=== PATIENT | female | born 1930 | race Caucasian/White ===

== ENCOUNTER 2016-11-20 00:24 | Inpatient (IN) | payer MEDICARE ==
[2016-11-20] MEDS ORDERED: IPRATROPIUM/ALBUTEROL 0.5-2.5 MG/3 ML AMPUL NEB ONE (01:26)
--- NOTE | 2016-11-20 01:26 | ER Document Report ---
ED Respiratory Problem - General Chief Complaint: Shortness Of Breath Stated Complaint: DIFFICULTY BREATHING Time seen by provider: 01:26 Mode of Arrival: Stretcher Information source: Patient, Relative - HPI Patient complains to provider of: COPD, Cough, Short of breath Onset: This morning Duration: Worse/persistent Quality of pain: No pain Context: Hx COPD Short of Breath: Moderate Chest pain/discomfort: Tightness Cough: Nonproductive Associated symptoms: Congestion, Cough, Difficulty breathing, Short of breath, Wheezing Similar symptoms previously: Yes Recently seen / treated by doctor: Yes Notes: Patient is an 86-year-old female with a history of COPD who recently moved to the area from [facility] with her son, earlier today patient developed a nonproductive but wet sounding cough, and difficulty breathing, she denies a fever, no chest pain, no nausea, vomiting or diarrhea, although son points out that she did have one episode of vomiting yesterday, son also reports that patient had a decreased appetite and decreased energy level throughout the day today, patient was recently seen by her primary care provider just prior to moving from [place] and was diagnosed with a urinary tract infection, she is currently on day 3 of Ceftin Past Medical History - General Information source: Patient, Relative - Social History Smoking Status: Former Smoker Family History: Reviewed & Not Pertinent Review of Systems - Review of Systems Constitutional: No symptoms reported EENT: No symptoms reported Cardiovascular: No symptoms reported Respiratory: Cough, Short of breath, Wheezing Gastrointestinal: Nausea Genitourinary: No symptoms reported Female Genitourinary: No symptoms reported Musculoskeletal: No symptoms reported Skin: No symptoms reported Hematologic/Lymphatic: No symptoms reported Neurological/Psychological: No symptoms reported -: Yes All other systems reviewed and negative Physical Exam - Vital signs Interpretation: Hypoxic - General General appearance: Alert In distress: None - HEENT Head: Normocephalic, Atraumatic Eyes: Normal Conjunctiva: Normal Extraocular movements intact: Yes Eyelashes: Normal Pupils: PERRL Mucous membranes: Normal Pharynx: Normal Neck: Normal - Respiratory Respiratory status: No respiratory distress Chest status: Nontender Breath sounds: Nonproductive cough, Wheezing Chest palpation: Normal - Cardiovascular Rhythm: Regular Heart sounds: Normal auscultation Murmur: No - Abdominal Inspection: Normal Distension: No distension Bowel sounds: Normal Tenderness: Nontender Organomegaly: No organomegaly - Back Back: Normal, Nontender - Extremities General upper extremity: Normal inspection, Nontender, Normal color, Normal ROM , Normal temperature General lower extremity: Normal inspection, Nontender, Normal color, Normal ROM , Normal temperature, Normal weight bearing. No: Yanely's sign - Neurological Neuro grossly intact: Yes Cognition: Normal Orientation: AAOx4 Alli Coma Scale Eye Opening: Spontaneous [place] Coma Scale Verbal: Oriented [place] Coma Scale Motor: Obeys Commands [place] Coma Scale Total: 15 Speech: Normal Motor strength normal: LUE, RUE, LLE, RLE Sensory: Normal - Psychological Associated symptoms: Normal affect, Normal mood - Skin Skin Temperature: Warm Skin Moisture: Dry Skin Color: Normal Course - Re-evaluation Re-evalutation: 11/20/16 03:03 I had a lengthy discussion with patient's son, Mehran at bedside, regarding patient's lab and imaging findings, including an elevated troponin, I discussed different treatment plan modalities with Mehran, Mehran indicated that patient would not be a candidate for cardiac catheterization and he would much rather prefer conservative medical management at this point in time, therefore patient was discussed with Dr. El the hospitalist who agrees to admit here for further evaluation and treatment - Laboratory Result Diagrams: 11/20/16 01:36 11/20/16 01:36 Laboratory results interpreted by me: 11/20/16 11/20/16 11/20/16 01:36 01:36 01:36 RBC 3.53 L Hgb 10.8 L Hct 32.7 L RDW 15.8 H Seg Neutrophils % 86.8 H Lymphocytes % 9.9 L Monocytes % 2.5 L Sodium 134.4 L Potassium 3.5 L Est GFR ( Amer) 57 L Est GFR (Non-Af Amer) 47 L Glucose 179 H NT-Pro-B Natriuret Pep 4130 H - Diagnostic Test Radiology reviewed: Image reviewed, Reports reviewed - EKG Interpretation by Me EKG shows normal: Sinus rhythm Rate: Normal Rhythm: NSR Voltage: Consistant with LVH - Transfer of Care Care transferred to following provider: Dr. El Discharge - Discharge Clinical Impression: COPD exacerbation Condition: Fair Disposition: ADMITTED INPATIENT Admitting Provider: Hospitalist Unit Admitted: Telemetry
[2016-11-20 01:52] LABS: ABSOLUTE LYMPHOCYTES (AUTO) 0.5 10^3/uL (0.5-4.7); ABSOLUTE MONOCYTES (AUTO) 0.1 10^3/uL (0.1-1.4); ABSOLUTE NEUT (AUTO) 4.5 10^3/uL (1.7-8.2); BASOPHILS % (AUTO) 0.5 % (0-2); EOSINOPHILS % (AUTO) 0.3 % (0-6); HEMATOCRIT 32.7 % (36.0-47.0); HEMOGLOBIN 10.8 g/dL (12.0-15.5); HGB HCT DIFFERENCE -0.3; LYMPHOCYTES % (AUTO) 9.9 % (13-45); MEAN CORPUSCULAR HEMOGLOBIN 30.7 pg (27.0-33.4); MEAN CORPUSCULAR HGB CONC 33.1 g/dL (32.0-36.0); MEAN CORPUSCULAR VOLUME 93 fl (80-97); MONOCYTES % (AUTO) 2.5 % (3-13); RED BLOOD COUNT 3.53 10^6/uL (3.72-5.28); RED CELL DISTRIBUTION WIDTH 15.8 % (11.5-14.0); SEGMENTED NEUTROPHILS % (AUTO) 86.8 % (42-78); WHITE BLOOD COUNT 5.2 10^3/uL (4.0-10.5)
[2016-11-20 02:03] LABS: ALANINE AMINOTRANSFERASE 20 U/L (9-52); ALBUMIN 3.5 g/dL (3.5-5.0); ALKALINE PHOSPHATASE 63 U/L (38-126); ANION GAP 13 (5-19); ASPARTATE AMINO TRANSFERASE 29 U/L (14-36); BILIRUBIN,TOTAL 0.9 mg/dL (0.2-1.3); BLOOD UREA NITROGEN 16 mg/dL (7-20); CALCIUM 8.7 mg/dL (8.4-10.2); CARBON DIOXIDE 23 mmol/L (22-30); CHLORIDE 98 mmol/L (98-107); CREATINE KINASE 80 U/L (30-135); CREATININE RESULT 1.09 mg/dL (0.52-1.25); GLUCOSE 179 mg/dL (75-110); POTASSIUM 3.5 mmol/L (3.6-5.0); SODIUM 134.4 mmol/L (137-145); TOTAL PROTEIN 6.8 g/dL (6.3-8.2)
[2016-11-20 02:15] LABS: CREATINE KINASE MB 1.77 ng/mL (<4.55)
[2016-11-20 02:21] LABS: TROPONIN I 0.264 ng/mL
[2016-11-20] MEDS ORDERED: ALBUTEROL SULFATE 0.083% NEB 2.5 MG/3 ML AMPUL NEB ONE (02:54)
[2016-11-20] MEDS ORDERED: ACETAMINOPHEN 325 MG TABLET PO PRN (03:01)
[2016-11-20] MEDS ORDERED: HYDRALAZINE HCL INJ/PF 20 MG/1 ML SDV IV PRN (03:01)
[2016-11-20] MEDS ORDERED: ASPIRIN 325 MG TABLET PO ONE (03:02)
[2016-11-20] MEDS ORDERED: ENALAPRILAT DIHYDRATE INJ/PF 1.25 MG/1 ML SDV IV ONE (03:03)
[2016-11-20 03:11] LABS: APPEARANCE,URINE SLIGHTLY-CLOUDY; BILIRUBIN,URINE NEGATIVE (NEGATIVE); GLUCOSE, URINE NEGATIVE (NEGATIVE); KETONES,URINE 20 mg/dL (NEGATIVE); LEUKOCYTE ESTERASE,URINE NEGATIVE (NEGATIVE); NITRITE,URINE NEGATIVE (NEGATIVE); PROTEIN,URINE 100 mg/dL (NEGATIVE); URINE SPECIFIC GRAVITY 1.013; UROBILINOGEN,URINE NEGATIVE mg/dL (<2.0)
[2016-11-20] MEDS ORDERED: POTASSI CL 20 MEQ/50 ML RIDER 20 MEQ/50 ML RTUPB IV SCH (03:15)
[2016-11-20] MEDS ORDERED: NITROGLYCERIN 0.4 MG/TAB 25 TAB/BOTTLE SL PRN (04:13)
[2016-11-20] MEDS ORDERED: ATORVASTATIN CALCIUM 80 MG TABLET PO SCH (04:15)
--- NOTE | 2016-11-20 06:28 | PDOC H&P ---
History of Present Illness Admission Date/PCP: 11/20/16 04:14 Patient complains of: Shortness of breath History of Present Illness: WILVER MATHIS is a 86 year old female with a past medical history of difficulty with hearing mild dementia and COPD recently moved to [place] from [facility] with her son. She been her usual state of health until approximately 2 days ago having excessive shortness of breath and a nonproductive cough but without fever. Any medication changes are unclear. In the emergency room she's found to be to tachypneic, with audible rhonchi at bedside and positive troponin. She denies chest pain abdominal pain back pain nausea vomiting or diaphoresis. Referred to the hospitalist for admission. Past Medical History Cardiac Medical History: Reports: Hypertension Pulmonary Medical History: Reports: Chronic Obstructive Pulmonary Disease (COPD) Musculoskeltal Medical History: Reports: Arthritis Hematology: Reports: Anemia Social History Information Source: Patient Smoking Status: Former Smoker Frequency of Alcohol Use: None Hx Recreational Drug Use: No Drugs: None Hx Prescription Drug Abuse: No - Advance Directive Resuscitation Status: Full Code Family History Family History: Hypertension Parental Family History Reviewed: Yes Children Family History Reviewed: Yes Sibling(s) Family History Reviewed.: Yes Medication/Allergy Home Medications: Cefuroxime Axetil [Ceftin 250 mg Tablet] 250 mg PO BID 11/20/16 Cholecalciferol (Vitamin D3) [Vitamin D3 1000 unit Chewable Tablet] 1,000 intlu PO 11/20/16 Citalopram Hydrobromide [Citalopram HBr] 10 mg PO DAILY 11/20/16 Cyanocobalamin (Vitamin B-12) [B-12] 11/20/16 Tiotropium [place] [Spiriva Handihaler 18 mcg/dose (30 Dose)] 18 mcg IH DAILY Allergies/Adverse Reactions: Sulfa (Sulfonamide Antibiotics) Allergy (Unknown, Verified 11/20/16 04:35) Unknown reaction Review of Systems Constitutional: ABSENT: chills, fever(s), headache(s), weight gain, weight loss Eyes: ABSENT: visual disturbances Ears: ABSENT: hearing changes Cardiovascular: ABSENT: chest pain, dyspnea on exertion, edema, orthropnea, palpitations Respiratory: PRESENT: cough, dyspnea. ABSENT: hemoptysis, sputum Gastrointestinal: ABSENT: abdominal pain, constipation, diarrhea, hematemesis, hematochezia, nausea, vomiting Genitourinary: ABSENT: dysuria, hematuria Musculoskeletal: ABSENT: joint swelling Integumentary: ABSENT: rash, wounds Neurological: ABSENT: abnormal gait, abnormal speech, confusion, dizziness, focal weakness, syncope Psychiatric: ABSENT: anxiety, depression, homidical ideation, suicidal ideation Endocrine: ABSENT: cold intolerance, heat intolerance, polydipsia, polyuria Hematologic/Lymphatic: ABSENT: easy bleeding, easy bruising Physical Exam Vital Signs: Temp Pulse Resp BP Pulse Ox 25 H 96/56 L 100 11/20/16 05:01 11/20/16 05:01 11/20/16 05:01 General appearance: PRESENT: cooperative, mild distress, thin, other - Cachexia with temporal wasting Head exam: PRESENT: atraumatic, normocephalic Eye exam: PRESENT: conjunctiva pink, EOMI, PERRLA. ABSENT: scleral icterus Ear exam: PRESENT: normal external ear exam Mouth exam: PRESENT: moist, tongue midline Teeth exam: PRESENT: edentulous Neck exam: ABSENT: carotid bruit, JVD, lymphadenopathy, thyromegaly Respiratory exam: PRESENT: accessory muscle use, crackles, prolonged expiratory phas, rales, rhonchi, symmetrical, tachypnea Cardiovascular exam: PRESENT: RRR. ABSENT: diastolic murmur, rubs, systolic murmur Pulses: PRESENT: normal carotid pulses Vascular exam: PRESENT: normal capillary refill GI/Abdominal exam: PRESENT: normal bowel sounds, soft. ABSENT: distended, guarding, mass, organolmegaly, rebound, tenderness Rectal exam: PRESENT: deferred Extremities exam: PRESENT: full ROM. ABSENT: calf tenderness, clubbing, pedal edema Neurological exam: PRESENT: alert, awake, oriented to person, oriented to place , oriented to time, oriented to situation, CN II-XII grossly intact. ABSENT: motor sensory deficit Psychiatric exam: PRESENT: appropriate affect, normal mood. ABSENT: homicidal ideation, suicidal ideation Skin exam: PRESENT: dry, intact, warm. ABSENT: cyanosis, rash Results Impressions: Chest X-Ray 11/20/16 01:16 IMPRESSION: Emphysema. Airspace opacity at the left lung base, may represent atelectasis, pneumonia or may be related to tortuous descending thoracic aorta. Prominence of the aortic arch, a thoracic aortic aneurysm cannot be excluded. Please correlate with clinical history. Evaluation with CT chest as clinically warranted. Assessment & Plan - Diagnosis (1) Non-ST elevation [place] (NSTEMI) Is this a current diagnosis for this admission?: YesPlan: Likely secondary to COPD exacerbation that said she is not a candidate for invasive management. Conservative management with optimization of COPD, blood pressure, aspirin, oxygen, MOLLY inhibitor and statin trending cardiac enzymes and EKG. Given her age and comorbidity I believe she is at high risk for bleeding with anticoagulation. (2) COPD exacerbation Is this a current diagnosis for this admission?: YesPlan: Albuterol, Atrovent, empiric antibiotics supplemental oxygen (3) Hypokalemia Is this a current diagnosis for this admission?: YesPlan: Evaluate magnesium level, Repletion and reevaluation of chemistry (4) Anemia Is this a current diagnosis for this admission?: YesPlan: Evaluate with anemia workup.
[2016-11-20] MEDS ORDERED: INFLUENZA ADLT QUAD (36MOS+) 2016-17 VAC 0.5 ML SYR IM PRN (06:39)
[2016-11-20] MEDS ORDERED: CITALOPRAM HYDROBROMIDE 20 MG TABLET PO SCH (07:00)
[2016-11-20] MEDS ORDERED: POTASSIUM CHLORIDE 20 MEQ/15 ML UDCUP PO ONE (08:33)
--- NOTE | 2016-11-20 09:57 | PDOC PROGRESS REPORT ---
Subjective Progress Note for:: 11/20/16 Subjective:: The patient would wake up from a but became angry when I tried to pull the covers back to examine her. She is confused but is moving all 4 extremities spontaneously. Physical Exam Vital Signs: Temp Pulse Resp BP Pulse Ox 97.4 F 84 16 102/57 L 98 11/20/16 05:40 11/20/16 07:00 11/20/16 05:40 11/20/16 05:40 11/20/16 05:40 Intake & Output 11/19/16 11/20/16 11/21/16 06:59 06:59 06:59 Weight 33.6 kg General appearance: PRESENT: no acute distress. ABSENT: cooperative Eye exam: PRESENT: conjunctiva pink. ABSENT: scleral icterus Mouth exam: PRESENT: moist, tongue midline Additional comments: Patient would not allow me to touch her to examine her. Results Impressions: Chest X-Ray 11/20/16 01:16 IMPRESSION: Emphysema. Airspace opacity at the left lung base, may represent atelectasis, pneumonia or may be related to tortuous descending thoracic aorta. Prominence of the aortic arch, a thoracic aortic aneurysm cannot be excluded. Please correlate with clinical history. Evaluation with CT chest as clinically warranted. Assessment & Plan - Diagnosis (1) COPD exacerbation Is this a current diagnosis for this admission?: YesPlan: Patient is receiving nebulizers as well as antibiotics. We'll continue with those. (2) Non-ST elevation [place] (NSTEMI) Is this a current diagnosis for this admission?: YesPlan: Most likely secondary to type II myocardial infarction. Patient denies any chest pain but is confused. Continue with aspirin. (3) Delirium Is this a current diagnosis for this admission?: YesPlan: Patient does have some underlying mild dementia. Will reassess later today and if she still confused consider getting a head CT. (4) Anemia Is this a current diagnosis for this admission?: Yes (5) Hypokalemia Is this a current diagnosis for this admission?: YesPlan: Will monitor and replace as needed. The patient will be given by mouth potassium - Time Time Spent with patient: 25-34 minutes - Inpatient Certification Medical Necessity: Need for IV Antibiotics
[2016-11-20] MEDS: FLUTICASONE NASAL SPRAY 50 MCG/SPRY 120 SPRAY/16 GM NASL SCH ×2 (12:01→23:24)
[2016-11-20] MEDS: TIOTROPIUM BROMIDE DPI 5 CAP/KIT (18 MCG/CAP) IH SCH (12:01)
[2016-11-20] MEDS: HEPARIN SOD (PORCINE) 5,000 UNIT/ML 1 ML SYRINGE SUBCUT SCH ×3 (12:01→23:25)
[2016-11-20] MEDS: LEVOFLOXACIN 500 MG/D5W RTU 500 MG/100 ML RTUPB IV SCH (12:01)
[2016-11-20] MEDS: ASPIRIN 81 MG TABLET, ENT COATED PO SCH (12:01)
[2016-11-20] MEDS: CYANOCOBALAMIN (VITAMIN B-12) 1,000 MCG TABLET PO SCH (12:01)
[2016-11-20] MEDS: DOCUSATE SODIUM 100 MG CAPSULE PO SCH ×2 (12:01→18:19)
--- NOTE | 2016-11-20 12:33 | EKG REPORT ---
SEVERITY:- ABNORMAL ECG - SINUS RHYTHM PROBABLE LEFT ATRIAL ABNORMALITY LEFT VENTRICULAR HYPERTROPHY PROLONGED QT INTERVAL : Confirmed by: Madalyn Obregon 20-Nov-2016 12:32:59
[2016-11-20 14:29] LABS: CHOLESTEROL 200.31 mg/dL (0-200); CREATINE KINASE 127 U/L (30-135); Direct HDL 63 mg/dL (>40); TRIGLYCERIDES 72 mg/dL (<150)
[2016-11-20 14:40] LABS: DIRECT LDL 103 mg/dL (<100)
[2016-11-20 14:42] LABS: CREATINE KINASE MB 3.61 ng/mL (<4.55); TROPONIN I 0.087 ng/mL
[2016-11-20 20:33] LABS: CREATINE KINASE MB 4.82 ng/mL (<4.55); TROPONIN I 0.075 ng/mL
[2016-11-21 04:42] LABS: ABSOLUTE LYMPHOCYTES (AUTO) 0.6 10^3/uL (0.5-4.7); ABSOLUTE MONOCYTES (AUTO) 0.4 10^3/uL (0.1-1.4); ABSOLUTE NEUT (AUTO) 8.1 10^3/uL (1.7-8.2); BASOPHILS % (AUTO) 0.3 % (0-2); EOSINOPHILS % (AUTO) 0.2 % (0-6); HEMATOCRIT 34.1 % (36.0-47.0); HEMOGLOBIN 11.3 g/dL (12.0-15.5); HGB HCT DIFFERENCE -0.2; LYMPHOCYTES % (AUTO) 6.1 % (13-45); MEAN CORPUSCULAR HEMOGLOBIN 30.1 pg (27.0-33.4); MEAN CORPUSCULAR HGB CONC 33.3 g/dL (32.0-36.0); MEAN CORPUSCULAR VOLUME 91 fl (80-97); MONOCYTES % (AUTO) 4.7 % (3-13); RED BLOOD COUNT 3.77 10^6/uL (3.72-5.28); RED CELL DISTRIBUTION WIDTH 15.5 % (11.5-14.0); SEGMENTED NEUTROPHILS % (AUTO) 88.7 % (42-78); WHITE BLOOD COUNT 9.1 10^3/uL (4.0-10.5)
[2016-11-21 04:56] LABS: ANION GAP 10 (5-19); BLOOD UREA NITROGEN 25 mg/dL (7-20); CALCIUM 9.9 mg/dL (8.4-10.2); CARBON DIOXIDE 29 mmol/L (22-30); CHLORIDE 95 mmol/L (98-107); CREATININE RESULT 0.95 mg/dL (0.52-1.25); GLUCOSE 122 mg/dL (75-110); POTASSIUM 3.8 mmol/L (3.6-5.0); SODIUM 134.4 mmol/L (137-145)
[2016-11-21] MEDS: HEPARIN SOD (PORCINE) 5,000 UNIT/ML 1 ML SYRINGE SUBCUT SCH (05:12)
[2016-11-21] MEDS: TIOTROPIUM BROMIDE DPI 5 CAP/KIT (18 MCG/CAP) IH SCH (10:17)
[2016-11-21] MEDS: ASPIRIN 81 MG TABLET, ENT COATED PO SCH (10:17)
[2016-11-21] MEDS: DOCUSATE SODIUM 100 MG CAPSULE PO SCH (10:17)
[2016-11-21] MEDS: FLUTICASONE NASAL SPRAY 50 MCG/SPRY 120 SPRAY/16 GM NASL SCH (10:17)
[2016-11-21] MEDS: CYANOCOBALAMIN (VITAMIN B-12) 1,000 MCG TABLET PO SCH (10:18)
[2016-11-21] MEDS: LEVOFLOXACIN 500 MG/D5W RTU 500 MG/100 ML RTUPB IV SCH (10:18)
[2016-11-21 12:23] VITALS: BP 102/57
--- NOTE | 2016-11-21 15:31 | PDOC DISCHARGE SUMMARY ---
General - Admit/Disc Date/PCP Admission Date/Primary Care Provider: 11/20/16 04:14 Discharge Date: 11/21/16 - Discharge Diagnosis (1) COPD exacerbation Is this a current diagnosis for this admission?: YesSummary: Treated initially with Levaquin but switch to Ceftin to take as an outpatient. Patient's son related that she becomes very agitated when she has taken Levaquin in the past. (2) Non-ST elevation [place] (NSTEMI) Is this a current diagnosis for this admission?: YesSummary: Patient most likely did not have a non-STEMI given the fact that there was not a increase in the troponins but a steady decrease most likely secondary to her acute respiratory distress. (3) Delirium Is this a current diagnosis for this admission?: YesSummary: Resolved. This may have been secondary to the Levaquin or sleep deprivation. (4) Anemia Is this a current diagnosis for this admission?: Yes (5) Hypokalemia Is this a current diagnosis for this admission?: Yes - Additional Information Resuscitation Status: Full Code Discharge Diet: Regular Discharge Activity: Activity As Tolerated Home Medications: Cholecalciferol (Vitamin D3) [Children's Vitamin D3] 1 tab PO DAILY 11/20/16 Citalopram Hydrobromide [Citalopram HBr] 10 mg PO DAILY 11/20/16 Cyanocobalamin (Vitamin B-12) [B-12] 1 cap PO DAILY 11/20/16 Midodrine HCl 10 mg PO TID 11/20/16 Tiotropium [place] [Spiriva Handihaler 18 mcg/dose (30 Dose)] 18 mcg IH DAILY Aspirin [Ecotrin 81 mg EC Tablet] 81 mg PO DAILY tabec 11/21/16 Cefuroxime Axetil [Ceftin 250 mg Tablet] 500 mg PO BID #14 tablet 11/21/16 History of Present Illness History of Present Illness: WILVER MATHIS is a 86 year old female who recently moved to the area from [place] to be with her children who presents with a 2 day history of shortness of breath and a nonproductive cough. Patient also was noted to have wheezing and tachypnea. Patient was felt to have an acute COPD exacerbation. She was noted to have an elevated troponin but did not have any complaints of chest pain. Hospital Course Hospital Course: 86-year-old female who presented with acute respiratory symptoms consistent with an acute COPD exacerbation. She was started on Levaquin and nebulizers. Patient became confused and lasted for about 8 hours and resolved. The patient had received Levaquin and the son relates that in the past she has had confusion with Levaquin. The patient also was noted to have elevated troponin when she presented however it decreased consistently as she was monitored and there was no spike in the level. This most likely does not represent a myocardial infarction but is related to her acute respiratory symptoms. He is to be sent home on a course of oral Ceftin and she probably should avoid Levaquin as it has caused her to have problems with delirium in the past. Physical Exam Vital Signs: Temp Pulse Resp BP Pulse Ox 98.2 F 91 18 102/57 L 95 11/21/16 12:13 11/21/16 12:13 11/21/16 12:13 11/21/16 12:13 11/21/16 12:13 Intake & Output 11/20/16 11/21/16 11/22/16 06:59 06:59 06:59 Intake Total 1004 Output Total 200 Balance 804 Weight 33.6 kg 33.6 kg General appearance: PRESENT: no acute distress Eye exam: PRESENT: conjunctiva pink. ABSENT: scleral icterus Ear exam: PRESENT: normal external ear exam Neck exam: ABSENT: JVD Respiratory exam: PRESENT: clear to auscultation moshe. ABSENT: rales, rhonchi, wheezes Cardiovascular exam: PRESENT: RRR. ABSENT: diastolic murmur, rubs, systolic murmur GI/Abdominal exam: PRESENT: normal bowel sounds, soft. ABSENT: distended, guarding, mass, organolmegaly, rebound, tenderness Rectal exam: PRESENT: deferred Neurological exam: PRESENT: alert, awake, oriented to person, oriented to place , oriented to situation, CN II-XII grossly intact. ABSENT: oriented to time, motor sensory deficit Psychiatric exam: PRESENT: appropriate affect Results Laboratory Results: 11/21/16 04:29 11/21/16 04:29 11/20/16 11/21/16 11/21/16 13:55 04:29 04:29 WBC 9.1 RBC 3.77 Hgb 11.3 L Hct 34.1 L MCV 91 MCH 30.1 MCHC 33.3 RDW 15.5 H Plt Count 167 Seg Neutrophils % 88.7 H Lymphocytes % 6.1 L Monocytes % 4.7 Eosinophils % 0.2 Basophils % 0.3 Absolute Neutrophils 8.1 Absolute Lymphocytes 0.6 Absolute Monocytes 0.4 Absolute Eosinophils 0.0 Absolute Basophils 0.0 Sodium 134.4 L Potassium 3.8 Chloride 95 L Carbon Dioxide 29 Anion Gap 10 BUN 25 H Creatinine 0.95 Est GFR ( Amer) > 60 Est GFR (Non-Af Amer) 56 L Glucose 122 H Calcium 9.9 Iron 29.2 L TIBC 345 % Saturation 8 Ferritin 57.40 Vitamin B12 > 1000.0 H Folate 14.50 11/20/16 11/20/16 11/20/16 13:55 13:55 19:50 Creatine Kinase 127 198 H CK-MB (CK-2) 3.61 Troponin I 0.087 11/20/16 19:50 Creatine Kinase CK-MB (CK-2) 4.82 H Troponin I 0.075 Impressions: Chest X-Ray 11/20/16 01:16 IMPRESSION: Emphysema. Airspace opacity at the left lung base, may represent atelectasis, pneumonia or may be related to tortuous descending thoracic aorta. Prominence of the aortic arch, a thoracic aortic aneurysm cannot be excluded. Please correlate with clinical history. Evaluation with CT chest as clinically warranted. Qualifiers PATEINT BEING DISCHARGED WITH ANY OF THE FOLLOWING DIAGNOSIS?: No Plan Discharge Plan: Patient is discharged home in stable condition. Time Spent: Greater than 30 Minutes
== END 2016-11-21 13:38 | disposition home or self-care (01) | DRG 192 ==
LOC: ER 00:24 → UNDOADMIN 03:08 → EH 03:08 → 5 05:50
PROVIDERS: ADMIT Internal Medicine; ATTEND Internal Medicine
PROC: 3E0234Z Introduction of Serum, Toxoid and Vaccine into Muscle, Percutaneous Approach (ICD-10-PCS; principal; 2016-11-21)
DX: J44.1 Chronic obstructive pulmonary disease with (acute) exacerbation (principal); D64.9 Anemia, unspecified; E87.6 Hypokalemia; I10 Essential (primary) hypertension; M19.90 Unspecified osteoarthritis, unspecified site; Z23 Encounter for immunization; Z88.2 Allergy status to sulfonamides; Z79.899 Other long term (current) drug therapy; Z87.891 Personal history of nicotine dependence; Z82.49 Family history of ischemic heart disease and other diseases of the circulatory system
CPT/HCPCS: 36415; 71010; 80048; 80053; 80061; 81001; 82550; 82553; 82607; 82728; 82746; 83540; 83550; 83880; 84484; 85025; 85045; 87040; 87086; 90686; 93005; 93010; 94640; 99285; J1644; J1956; J3480; J3490; J7620